=== PATIENT | male | born 1975 | race Two or more races ===

== ENCOUNTER 2024-06-14 11:12 | Emergency (ER) | payer OTHER ==
[~2024-06-14] VITALS: Ht 185.4 cm; Wt 83.9 kg
[2024-06-14] MEDS ORDERED: HYDROCORTISONE ACETATE 25 MG/SUPP.RECT SUPP.RECT RC ONE (12:05)
[2024-06-14] MEDS ORDERED: ONDANSETRON HCL/PF 4 MG/2 ML VIAL ONE (12:05)
[2024-06-14] MEDS: IV NS 0.9% 1,000 ML BAG IV ONE (12:14)
[2024-06-14] MEDS: HYDROCORTISONE ACETATE 25 MG/SUPP.RECT SUPP.RECT RC ONE (12:14)
[2024-06-14] MEDS: ONDANSETRON HCL/PF 4 MG/2 ML VIAL IV ONE (12:14)
[2024-06-14] MEDS ORDERED: HYDR25SU33 RC (12:36)
[2024-06-14] MEDS ORDERED: ONDA4TAB5 PO (12:36)
[2024-06-14] MEDS ORDERED: FAMO-131 PO (12:36)
[2024-06-14] MEDS: ACETAMINOPHEN 325 MG TABLET PO ONE (12:53)
[2024-06-14] MEDS ORDERED: ACETAMINOPHEN ES 500 MG TABLET ONE (12:53)
[2024-06-14 13:41] LABS: APPEARANCE,URINE CLEAR (CLEAR); BILIRUBIN,URINE NEGATIVE (NEGATIVE); BLOOD, URINE NEGATIVE Ery/uL (NEGATIVE); COLOR,URINE YELLOW (YELLOW); KETONES,URINE 1+ mg/dL (NEGATIVE); LEUKOCYTE ESTERASE ,URINE NEGATIVE (NEGATIVE); NITRITE, URINE NEGATIVE (NEGATIVE); PH,URINE 6.5 (5.0-8.0); PROTEIN,URINE NEGATIVE (NEGATIVE); UGLUCOSE NEGATIVE (NEGATIVE); UROBILINOGEN,URINE 0.2 EU/dL (0.2)
[2024-06-14 14:54] LABS: RBC,URINE 0-2 /HPF (0-2); WBC,URINE NONE SEEN /HPF (0-3)
[2024-06-14 14:55] LABS: ADD URINE CULTURE NO; BACTERIA,URINE None seen /HPF (None Seen); SQUAMOUS EPITHELIAL CELL,UR 0-2 /HPF (None Seen)
[2024-06-14 15:23] VITALS: BP 142/88; TEMP 98.7; O2SAT 95
== END 2024-06-14 15:23 | disposition home or self-care (01) ==
LOC: ER 11:22
DX: K52.9 Noninfective gastroenteritis and colitis, unspecified (principal); K64.4 Residual hemorrhoidal skin tags; Z87.19 Personal history of other diseases of the digestive system
CPT/HCPCS: 99283; 96374; 96361; 81001; J2405; J7030; A4223